=== PATIENT | female | born 1940 | race Caucasian/White ===

== ENCOUNTER 2017-07-07 16:56 | Inpatient (IN) | payer BC, MEDICARE ==
[~2017-07-07] VITALS: Ht 170.2 cm; Wt 78.2 kg
[~2017-07-07 16:56] MED LIST: AMLODIPINE BESYL5 MG PO; ATENOLOL50 MG PO; PREDNISONE20 MG PO
--- OUTSIDE RECORDS SUMMARY | 2017-07-07 17:00 | XMS REPORT | Continuity of Care Document ---
Author Author [facility] Organization [facility] Address [address] [place] [address] Phone Unavailable Care Team Providers Care Fibre Composite Technician Name Role Phone NUSRAT ESPAÑA MD PCP Insurance Providers Guarantor Jayne Conrad Address [address] [place] [address] Email [email or web address] Payer [facility] Policy Number [id number] Subscriber's Name Jayne Conrad Relationship 18 Self / Same As Patient Group Number [id number] [facility] Effective Date 16 Payer Medicare A Only Policy Number [id number] Subscriber's Name Jayne Conrad Relationship 18 Self / Same As Patient Effective Date 07 Advance Directives Directive Response Recorded Date/Time Does the patient have an advance directive? No 01/29/11 8:00pm If yes, is advance directive on file with [facility]? No 06/16/17 7:11pm If not on file with [facility] will patient provide a copy? No 06/16/17 7:11pm Do you have a Directive to Physician? No 06/16/17 5:32pm Do you have a Medical Power of Multimedia Services Coordinator? No 06/16/17 5:32pm Do you have an out of hospital Do Not Resuscitate Order? No 06/16/17 5:32pm Do you have any special needs we should be aware of? No 06/16/17 5:32pm Do you have a support person here with you today? Yes 06/16/17 5:32pm Did patient receive Notice of Privacy Practices? Yes 06/16/17 5:32pm Did patient receive patient rights and responsibilities? Yes 06/16/17 5:32pm Problems Medical Problem Onset Date Status Acute dyspnea Unknown Chest pain Unknown Medications Current Home Medications Medication Dose Units Route Directions Days Qty Instructions Start Date Amlodipine Besylate 5 Mg Tablet 5 Mg Oral Bedtime 30 Tab Atenolol 50 Mg Tablet 25 Mg Oral Bedtime Prednisone 20 Mg Tab 20 Mg Oral Daily 5 Tab Social History Social History Problem Response Recorded Date/Time Onset Date Status Hx Psychiatric Problems No 06/16/2017 7:11pm Not Applicable Not Applicable Hx Eating Disorder No 06/16/2017 7:11pm Not Applicable Not Applicable Hx Substance Use Disorder No 06/16/2017 7:11pm Not Applicable Not Applicable Hx Depression No 06/16/2017 7:11pm Not Applicable Not Applicable Hx Alcohol Use No 06/16/2017 7:11pm Not Applicable Not Applicable Hx Substance Use Treatment No 06/16/2017 7:11pm Not Applicable Not Applicable Hx Physical Abuse No 06/16/2017 7:11pm Not Applicable Not Applicable Smoking Status Start Date Stop Date Never Smoker Hospital Discharge Instructions No hospital discharge instruction information available. Plan of Care Discharge Date 06/20/17 3:26pm Disposition HOME, SELF-CARE Instructions/Education Provided Dyspnea Prescriptions See Medication Section Referrals KULWANT EVANS MD (Pulmonary) Order Date: 5-7 Days Entered Date: 06/20/2017 1:55pm Address: [address] [place] [place] [address] Additional Instructions/Education REGULAR DIET ,ACTIVITY TOLERATED ,FOLLOW UP WITH PCP AFTER ONE WEEK Functional Status Query Response Date Recorded Assistive Devices None June 16, 2017 7:15pm Ambulation Ability Independent June 16, 2017 7:15pm Toileting Ability Independent June 20, 2017 12:46pm Allergies, Adverse Reactions, Alerts Allergen Type Severity Reaction Status Last Updated Levofloxacin Allergy Unknown Active 06/16/17 Immunizations No immunization information available. Vital Signs Acute Vital Signs Vital Response Date/Time Temperature (Fahrenheit) 96.4 degrees F (97.6 - 99.5) 06/20/2017 12:17pm Pulse Pulse Rate (adult) 64 bpm (60 - 90) 06/20/2017 12:17pm Respiratory Rate 18 bpm (12 - 24) 06/20/2017 12:17pm Blood Pressure 140/70 mm Hg 06/20/2017 12:17pm Height 5 ft 7 in 06/16/2017 8:20pm Weight 160 lb 06/20/2017 8:40am Body Mass Index 25.1 kg/m^2 06/20/2017 8:40am Results Laboratory Results Test Name Result Units Flags Reference Collection Date/Time Result Date/ Time Comments White Blood Count 9.80 x10e3/uL 4.8-10.8 06/19/2017 6:05am 06/19/2017 6 :52am Red Blood Count 3.82 x10e6/uL 3.6-5.1 06/19/2017 6:05am 06/19/2017 6: 52am Hemoglobin 11.7 g/dL L 12.0-16.0 06/19/2017 6:05am 06/19/2017 6:52am Hematocrit 34.1 % L 34.2-44.1 06/19/2017 6:05am 06/19/2017 6:52am Mean Corpuscular Volume 89.3 fL 81-99 06/19/2017 6:05am 06/19/2017 6: 52am Mean Corpuscular Hemoglobin 30.6 pg 28-32 06/19/2017 6:05am 06/19/2017 6:52am Mean Corpuscular Hemoglobin Concent 34.3 g/dL 31-35 06/19/2017 6:05am 06/19/2017 6:52am Red Cell Distribution Width 13.2 % 11.7-14.4 06/19/2017 6:05am 2017 6:52am Platelet Count 473 x10e3/uL H 140-360 06/19/2017 6:05am 06/19/2017 6: 52am Neutrophils (%) (Auto) 78.6 % 38.7-80.0 06/19/2017 6:05am 06/19/2017 6: 52am Lymphocytes (%) (Auto) 16.0 % L 18.0-39.1 06/19/2017 6:05am 06/19/2017 6 :52am Monocytes (%) (Auto) 2.7 % L 4.4-11.3 06/19/2017 6:05am 06/19/2017 6: 52am Eosinophils (%) (Auto) 0.0 % 0.0-6.0 06/19/2017 6:05am 06/19/2017 6: 52am Basophils (%) (Auto) 0.1 % 0.0-1.0 06/19/2017 6:05am 06/19/2017 6:52am IM GRANULOCYTES % 2.6 % H 0.0-1.0 06/19/2017 6:05am 06/19/2017 6:52am Neutrophils # (Auto) 7.7 H 2.1-6.9 06/19/2017 6:05am 06/19/2017 6: 52am Lymphocytes # (Auto) 1.6 1.0-3.2 06/19/2017 6:05am 06/19/2017 6:52am Monocytes # (Auto) 0.3 0.2-0.8 06/19/2017 6:05am 06/19/2017 6:52am Eosinophils # (Auto) 0.0 0.0-0.4 06/19/2017 6:05am 06/19/2017 6:52am Basophils # (Auto) 0.0 0.0-0.1 06/19/2017 6:05am 06/19/2017 6:52am Absolute Immature Granulocyte (auto 0.25 x10e3/uL H 0-0.1 06/19/2017 6: 05am 06/19/2017 6:52am Differential Total Cells Counted 100 06/19/2017 6:05am 06/19/2017 12:03pm Neutrophils % (Manual) 71 % 40-74 06/19/2017 6:05am 06/19/2017 12:03pm Band Neutrophils % 6 % 06/19/2017 6:05am 06/19/2017 12:03pm Lymphocytes % (Manual) 18 % L 19-48 06/19/2017 6:05am 06/19/2017 12: 03pm Monocytes % (Manual) 5 % 3.4-9.0 06/19/2017 6:05am 06/19/2017 12:03pm Eosinophils % (Manual) 2 % 0-7 06/16/2017 2:15pm 06/16/2017 6:23pm Platelet Estimate MODERATELY INCREASED 06/19/2017 6:05am 2017 12:03pm Platelet Morphology Comment NORMAL 06/19/2017 6:05am 06/19/2017 12: 03pm Polychromasia FEW 06/16/2017 2:15pm 06/16/2017 6:23pm Red Cell Morphology Comment NORMAL 06/19/2017 6:05am 06/19/2017 12: 03pm Prothrombin Time 13.3 seconds 11.9-14.5 06/16/2017 2:15pm 06/16/2017 3: 01pm Prothromb Time International Ratio 1.09 06/16/2017 2:15pm 2017 3:01pm Oral Anticoagulant Therapy INR Values: 1. Low Intensity Therapy 1.5 - 2.0 2. Moderate Intensity Therapy 2.0 - 3.0 3. High Intensity Therapy(1) 2.5 - 3.5 4. High Intensity Therapy(2) 3.0 - 4.0 5. Panic Value INR > 5.0 D-Dimer Quantitative (PE/DVT) 11.10 ug/mLFEU H 0.00-0.45 06/16/2017 2: 15pm 06/16/2017 3:16pm Urine Color YELLOW YELLOW 06/16/2017 2:35pm 06/16/2017 3:09pm Urine Clarity CLEAR CLEAR 06/16/2017 2:35pm 06/16/2017 3:09pm Urine Specific [place] 1.010 1.010-1.025 06/16/2017 2:35pm 2017 3:09pm Urine pH 6 5 - 7 06/16/2017 2:35pm 06/16/2017 3:09pm Urine Leukocyte Esterase NEGATIVE NEGATIVE 06/16/2017 2:35pm 2017 3:09pm Urine Nitrite NEGATIVE NEGATIVE 06/16/2017 2:35pm 06/16/2017 3:09pm Urine Protein NEGATIVE NEGATIVE 06/16/2017 2:35pm 06/16/2017 3:09pm Urine Glucose (UA) NEGATIVE NEGATIVE 06/16/2017 2:35pm 06/16/2017 3: 09pm Urine Ketones NEGATIVE NEGATIVE 06/16/2017 2:35pm 06/16/2017 3:09pm Urine Urobilinogen 0.2 mg/dL 0.2 - 1 06/16/2017 2:35pm 06/16/2017 3: 09pm Urine Bilirubin NEGATIVE NEGATIVE 06/16/2017 2:35pm 06/16/2017 3: 09pm Urine Blood TRACE H NEGATIVE 06/16/2017 2:35pm 06/16/2017 3:09pm Urine WBC NONE /HPF 0-5 06/16/2017 2:35pm 06/16/2017 3:22pm Urine RBC 6-10 /HPF H 0-5 06/16/2017 2:35pm 06/16/2017 3:22pm Urine Bacteria FEW /HPF NONE 06/16/2017 2:35pm 06/16/2017 3:22pm Urine Epithelial Cells FEW /LPF NONE 06/16/2017 2:35pm 06/16/2017 3: 22pm Urine Amorphous Sediment FEW FEW 06/16/2017 2:35pm 06/16/2017 3:22pm Urine Yeast RARE H NONE 06/16/2017 2:35pm 06/16/2017 3:22pm Sodium Level 135 mmol/L L 136-145 06/19/2017 6:05am 06/19/2017 7:21am Potassium Level 4.0 mmol/L 3.5-5.1 06/19/2017 6:05am 06/19/2017 7:21am Chloride Level 102 mmol/L 98-107 06/19/2017 6:05am 06/19/2017 7:21am Carbon Dioxide Level 22 mmol/L 22-06/19/2017 6:05am 06/19/2017 7: 21am Anion Gap 15.0 mmol/L 8-16 06/19/2017 6:05am 06/19/2017 7:21am Blood Urea Nitrogen 24 mg/dL 706/19/2017 6:05am 06/19/2017 7:21am Creatinine 0.90 mg/dL 0.57-1.11 06/19/2017 6:05am 06/19/2017 7:21am BUN/Creatinine Ratio 27 H 6-06/19/2017 6:0506/19/2017 7:21am Estimat Glomerular Filtration Rate > 60 ML/MIN 60- 06/19/2017 6:05 7:21am Ranges were taken from the National Kidney Disease Education Program and the National Kidney Foundation literature. Reference ranges: 60 or greater: Normal 16-59 (for 3 consecutive months): Chronic kidney disease 15 or less: Kidney failure Glucose Level 118 mg/dL 74-118 06/19/2017 6:05am 06/19/2017 7:21am Calcium Level 8.6 mg/dL 8.4-10.2 06/19/2017 6:05am 06/19/2017 7:21am Magnesium Level 2.1 MG/DL 1.3-2.1 06/18/2017 9:28am 06/18/2017 10:03am Total Bilirubin 0.4 mg/dL 0.2-1.2 06/19/2017 6:05am 06/19/2017 7:21am Aspartate Amino Transf (AST/SGOT) 64 IU/L H 5-34 06/19/2017 6:0506/19 7:21am Alanine Aminotransferase (ALT/SGPT) 108 IU/L H 0-55 06/19/2017 6:05am 7:21am Total Protein 6.3 g/dL L 6.5-8.1 06/19/2017 6:0506/19/2017 7:21am Albumin 2.7 g/dL L 3.5-5.0 06/19/2017 6:0506/19/2017 7:21am Globulin 3.6 g/dL H 2.3-3.5 06/19/2017 6:0506/19/2017 7:21am Albumin/Globulin Ratio 0.8 0.8-2.0 06/19/2017 6:0506/19/2017 7: 21am Alkaline Phosphatase 73 IU/L 40-150 06/19/2017 6:0506/19/2017 7: 21am Triglycerides Level 75 MG/DL 0-149 06/17/2017 6:10am 06/17/2017 7:28am Cholesterol Level 168 MD/DL 0-199 06/17/2017 6:10am 06/17/2017 7:28am Less than 200 mg/dL Low Risk 201 - 239 mg/dL Borderline Risk 240 mg/dl and greater High Risk LDL Cholesterol 105 MG/DL 60-130 06/17/2017 6:10am 06/17/2017 7:28am HDL Cholesterol 48 MG/DL 40-60 06/17/2017 6:10am 06/17/2017 7:28am Cholesterol/HDL Ratio 3.5 3.0-3.6 06/17/2017 6:10am 06/17/2017 7: 28am B-Type Natriuretic Peptide 19.7 pg/mL 0-100 06/16/2017 2:15pm 2017 3:12pm Creatine Kinase 28 IU/L L 29-168 06/17/2017 6:10am 06/17/2017 7:28am Creatine Kinase MB 0.70 ng/mL 0-5.0 06/17/2017 6:10am 06/17/2017 7: 34am Troponin I < 0.001 ng/mL 0-0.300 06/17/2017 6:10am 06/17/2017 7:34am Free Thyroxine 1.49 ng/dL 0.9-1.8 06/16/2017 10:07pm 06/16/2017 11: 03pm Thyroid Stimulating Hormone (TSH) 1.157 uIU/mL 0.350-4.940 06/16/2017 10 :07pm 06/16/2017 11:03pm Anti-Mitochondrial Antibody 4.2 Units 0.0-20.0 06/17/2017 10:13am 06/19 7:26pm Negative 0.0 - 20.0 Equivocal 20.1 - 24.9 Positive >24.9 Mitochondrial (M2) Antibodies are found in 90-96% of patients with primary biliary cirrhosis. Performed at: [address] [id number] Managing Editor: Eddy Borja MD, Phone: [phone] Performed at: [address] [id number] Managing Editor: Faustino Spivey MD, Phone: [phone] Anti-Nuclear Antibody Screen Negative . 06/17/2017 10:13am 2017 2:08pm Negative <1:80 Borderline 1:80 Positive >1:80 Performed at: [facility] [address] [id number] Managing Editor: Eddy Borja MD, Phone: [phone] Gamma Glutamyl Transpeptidase 68 IU/L H 0-60 06/17/2017 10:13am 2017 7:44am Performed at: [address] [id number] Managing Editor: Eddy Borja MD, Phone: [phone] C-Reactive Protein 105.7 mg/L H 0.0-4.9 06/17/2017 10:13am 06/18/2017 2: 09pm Performed at: [address] [id number] Managing Editor: Eddy Borja MD, Phone: [phone] Luly-Fuchs Virus IgM Antibody <36.0 U/mL 0.0-35.9 06/17/2017 10:13am 06/19/2017 7:26pm Negative <36.0 Equivocal 36.0 - 43.9 Positive >43.9 Luly-Fuchs Early Antigen IgG Ab 35.2 U/mL H 0.0-8.9 06/17/2017 10:13am 06/19/2017 7:26pm Hepatitis A, Hepatitis C and HIV antibodies may cross-react with this assay. Negative < 9.0 Equivocal 9.0 - 10.9 Positive >10.9 Luly-Fuchs Virus IgG Antibody 86.3 U/mL H 0.0-17.9 06/17/2017 10:13am 06/19/2017 7:26pm Negative <18.0 Equivocal 18.0 - 21.9 Positive >21.9 Luly-Fuchs Nuclear Assoc Ag IgG 18.6 U/mL H 0.0-17.9 06/17/2017 10: 13am 06/19/2017 7:26pm A second sample should be collected and tested no less than 2-4 weeks. Negative <18.0 Equivocal 18.0 - 21.9 Positive >21.9 Luly-Fuchs Virus Interpretation Comment . 06/17/2017 10:13am 2017 7:26pm EBV Interpretation Chart Interpretation EBV-IgM EA(D)-IgG VCA-IgG EBNA-IgG EBV Seronegative - - - - Early Phase + - - - Acute Primary + +or- + - Infection Convalescence/Past - +or- + + Infection Reactivated +or- + + + Infection + Antibody Present - Antibody Absent Procedures Procedure Status Date Provider(s) Computed tomography of chest without contrast Active 06/16/17 KULWANT EVANS MD gallbladder Active 06/17/17 KULWANT EVANS MD Encounters Encounter Location Arrival/Admit Date Discharge/Depart Date Attending Provider Admitted Inpatient [facility] 06/16/17 5:34pm NUSRAT ESPAÑA MD
[2017-07-07 18:23] LABS: BASOPHILS % 0.3 % (0.0-1.0); EOSINOPHILS % 0.3 % (0.0-6.0); HEMATOCRIT 36.4 % (34.2-44.1); HEMOGLOBIN 12.2 g/dL (12.0-16.0); LYMPHOCYTES # (AUTO) 1.5 (1.0-3.2); MEAN CORPUSCULAR HEMOGLOBIN 30.7 pg (28-32); MEAN CORPUSCULAR HGB CONC 33.5 g/dL (31-35); MEAN CORPUSCULAR VOLUME 91.7 fL (81-99); MONOCYTES # (AUTO) 0.5 (0.2-0.8); MONOCYTES % 5.7 % (4.4-11.3); NEUTROPHILS # (AUTO) 6.5 (2.1-6.9); NEUTROPHILS % 72.7 % (38.7-80.0); PLATELET COUNT 234 x10e3/uL (140-360); RED BLOOD COUNT 3.97 x10e6/uL (3.6-5.1); RED CELL DISTRIBUTION WIDTH 14.5 % (11.7-14.4)
[2017-07-07 18:23] LABS: BILIRUBIN,URINE NEGATIVE (NEGATIVE); COLOR,URINE YELLOW (YELLOW); KETONES,URINE NEGATIVE (NEGATIVE); LEUKOCYTE ESTERASE ,URINE NEGATIVE (NEGATIVE); NITRITE,URINE NEGATIVE (NEGATIVE); PROTEIN,URINE DIPSTICK NEGATIVE (NEGATIVE); URINE UROBILINOGEN 0.2 mg/dL (0.2 - 1)
[2017-07-07] MEDS ORDERED: ONDANSETRON HCL INJ 2 MG/ML VIAL IV STA (18:25)
[2017-07-07 18:28] LABS: CLARITY,URINE SL CLOUDY (CLEAR)
[2017-07-07] MEDS ORDERED: ACETAMINOPHEN 325 MG TAB PO ONE ×2 (18:30)
[2017-07-07 18:32] LABS: INR 0.98; PROTHROMBIN TIME 12.2 seconds (11.9-14.5)
[2017-07-07 18:34] LABS: PARTIAL THROMBOPLASTIN TIME 21.5 seconds (23.8-35.5)
[2017-07-07 18:39] LABS: ALBUMIN/GLOBULIN RATIO 0.9 (0.8-2.0); ANION GAP 17.9 mmol/L (8-16); CALCIUM 8.7 mg/dL (8.4-10.2); CREATININE, SERUM 0.99 mg/dL (0.57-1.11); POTASSIUM 3.9 mmol/L (3.5-5.1)
[2017-07-07 18:45] LABS: EPITHELIAL CELLS,URINE MODERATE /LPF; RBC,URINE 0-5 /HPF (0-5); WBC,URINE (MAN) 0-5 /HPF (0-5)
[2017-07-07 18:48] LABS: CREATINE KINASE MB 0.6 ng/mL (0-5.0)
[2017-07-07] MEDS ORDERED: MORPHINE SULFATE 2 MG/ML SYR IV STA (18:52)
[2017-07-07 19:17] LABS: HYPOCHROMASIA SLIGHT; LYMPHOCYTES % (MANUAL) 16 % (19-48); MONOCYTES % (MANUAL) 7 % (3.4-9.0); NEUTROPHILS % (MANUAL) 74 % (40-74); PLATELET ESTIMATE ADEQUATE; PLATELET MORPHOLOGY COMMENT NORMAL; RBC MORPHOLOGY COMMENT NORMAL
[2017-07-07] MEDS ORDERED: SODIUM CHLORIDE 0.9% 1000ML 1,000 ML IV SCH (19:45)
[2017-07-07] MEDS: SODIUM CHLORIDE 0.9% 1000ML 1,000 ML IV SCH (19:50)
--- NOTE | 2017-07-07 21:26 | Diagnostic Imaging Report ---
EXAM: CT ABDOMEN AND PELVIS without IV CONTRAST INDICATION: Lower abdominal pain, nausea and vomiting for 3 days COMPARISON: None TECHNIQUE: The abdomen and pelvis were scanned using a multidetector helical scanner. Coronal and sagittal reformations were obtained. Routine protocol performed. IV Contrast: None Oral Contrast: None CTDIvol has been reviewed. It is below the limits set by the Radiation Protocol Committee (RPC). FINDINGS: LOWER THORAX: No consolidations LIVER: No masses BILIARY: Normal gallbladder. No ductal dilation. SPLEEN: No masses PANCREAS: No masses ADRENALS: No nodules RIGHT KIDNEY: No nephroureterolithiasis or hydronephrosis. LEFT KIDNEY: No nephroureterolithiasis or hydronephrosis. GI TRACT: No wall thickening or obstruction. Small hiatal hernia. Sigmoid colon diverticulosis without findings of diverticulitis. No evidence of appendicitis. VESSELS: Mild to moderate atherosclerotic changes of the abdominal aorta without aneurysm. PERITONEUM/RETROPERITONEUM: No free air or fluid LYMPH NODES: No lymphadenopathy REPRODUCTIVE ORGANS: The uterus and ovaries are not visualized. BLADDER: Normal SOFT TISSUES: Normal BONES: No suspicious bone lesions. IMPRESSION: No CT findings to explain patient's symptoms. Signed by: Dr. Rosa Tobar M.D. on 07/07/2017 9:23 PM
--- NOTE | 2017-07-07 21:32 | Diagnostic Imaging Report ---
EXAM: CHEST 2 VIEWS, PA and lateral INDICATION: Cough COMPARISON: None FINDINGS: LINES/TUBES: None LUNGS: No consolidations or edema. PLEURA: No effusions or pneumothorax. Eventration of the right hemidiaphragm. HEART AND MEDIASTINUM: Normal size and contour. BONES AND SOFT TISSUES: No acute findings. Mild chronic wedging of mid thoracic spine vertebral bodies. IMPRESSION: No evidence of pneumonia. Signed by: Dr. Rosa Tobar M.D. on 07/07/2017 9:29 PM
[2017-07-07] MEDS: METRONIDAZOLE 500MG/NS 100ML 100 ML IV SCH (23:10)
[2017-07-07 23:35] VITALS: BP 112/56
[2017-07-07] MEDS: CEFOXITIN SOD 1 GM VIAL IV SCH (23:44)
[2017-07-08] VITALS (7 sets, daily range): BP systolic 103–155; BP diastolic 56–74
[2017-07-08] MEDS ORDERED: CEFOXITIN SOD 1 GM in WATER STERILE 10ML VIAL 10 ML IV SCH ×2
[2017-07-08] MEDS: MORPHINE SULFATE 2 MG/ML SYR IV PRN ×2 (00:35→04:11)
[2017-07-08] MEDS: ONDANSETRON HCL INJ 2 MG/ML VIAL IV PRN ×5 (00:35→22:00)
[2017-07-08] MEDS: SODIUM CHLORIDE 0.9% 1000ML 1,000 ML IV SCH ×3 (04:12→19:15)
[2017-07-08] MEDS: METRONIDAZOLE 500MG/NS 100ML 100 ML IV SCH ×3 (05:27→21:55)
[2017-07-08] MEDS: CEFOXITIN SOD 1 GM VIAL IV SCH ×4 (05:27→23:30)
[2017-07-08] MEDS: ACETAMINOPHEN 325 MG TAB PO PRN ×3 (05:57→21:48)
[2017-07-08 06:50] LABS: BASOPHILS % 0.4 % (0.0-1.0); EOSINOPHILS # (AUTO) 0.1 (0.0-0.4); EOSINOPHILS % 0.8 % (0.0-6.0); HEMATOCRIT 32.7 % (34.2-44.1); HEMOGLOBIN 10.9 g/dL (12.0-16.0); LYMPHOCYTES # (AUTO) 1.2 (1.0-3.2); LYMPHOCYTES % 15.5 % (18.0-39.1); MEAN CORPUSCULAR HGB CONC 33.3 g/dL (31-35); MEAN CORPUSCULAR VOLUME 92.9 fL (81-99); MONOCYTES # (AUTO) 0.4 (0.2-0.8); MONOCYTES % 4.7 % (4.4-11.3); NEUTROPHILS # (AUTO) 5.9 (2.1-6.9); NEUTROPHILS % 73.8 % (38.7-80.0); PLATELET COUNT 192 x10e3/uL (140-360); RED BLOOD COUNT 3.52 x10e6/uL (3.6-5.1); RED CELL DISTRIBUTION WIDTH 14.7 % (11.7-14.4)
[2017-07-08 07:22] LABS: ALBUMIN 2.6 g/dL (3.5-5.0); ALBUMIN/GLOBULIN RATIO 0.9 (0.8-2.0); ANION GAP 11.6 mmol/L (8-16); CALCIUM 8.2 mg/dL (8.4-10.2); CREATININE, SERUM 1.14 mg/dL (0.57-1.11); POTASSIUM 3.6 mmol/L (3.5-5.1)
[2017-07-08 08:21] LABS: BAND NEUTROPHILS % (MANUAL) 4 %; LYMPHOCYTES % (MANUAL) 12 % (19-48); MONOCYTES % (MANUAL) 5 % (3.4-9.0); NEUTROPHILS % (MANUAL) 79 % (40-74); PLATELET ESTIMATE ADEQUATE; PLATELET MORPHOLOGY COMMENT NORMAL; RBC MORPHOLOGY COMMENT NORMAL
--- NOTE | 2017-07-08 13:53 | Consultation ---
DATE OF CONSULTATION: PULMONARY CONSULTATION REASON FOR CONSULTATION: Fever of unknown origin. Patient reports that she has no energy. HPI: Ms. Conrad is a 77-year-old female, and she has a concern. She said that she has fevers at home and she has no energy. She denies any chest pain, nausea, vomiting, diarrhea, abdominal pain, focal weakness. Temperature has been 101 here and 101.9. No etiology has been identified. She had similar complaints last visit when she was here in the beginning of June. She reports that she never felt better since she went home. She has been getting Rocephin shot by Dr. Alba per his note. She denies any nausea, vomiting, diarrhea or focal weakness, generally feels drained. REVIEW OF SYSTEMS GENERAL: Fever, chills. HEAD: Denies any head trauma. ENT: Denies any earache, nosebleed, throat pain. CVS: Denies any chest pain. RESPIRATORY: No shortness of breath. GI: Denies any nausea, vomiting, diarrhea. OTHER: Rest of the review of systems are negative except as in HPI. PAST MEDICAL HISTORY: Hypertension. PAST SURGICAL HISTORY: Cataract. FAMILY AND SOCIAL HISTORY: She works in a library. She does not smoke and does not drink. PHYSICAL EXAMINATION VITAL SIGNS: Temperature 97, pulse 78, blood pressure 103/59, respiratory rate of 18. T-max of 101. SKIN: Warm and dry. HEENT: Head is atraumatic, normocephalic. Pupils are reactive. NECK: Supple. CHEST: Clear to auscultation bilaterally. HEART: S1, S2 audible. ABDOMEN: Soft. EXTREMITIES: No clubbing, cyanosis or edema. LABS: Within normal limits. Creatinine is mildly elevated to 1.14. She underwent a CT chest during last visit which did not show any acute findings. She underwent ultrasound of the abdomen and pelvis. She underwent gallbladder ultrasound, which showed positive Carreon sign but nothing to suggest cholecystitis. She underwent CT abdomen and pelvis on the with no CT findings. Chest x-ray is also normal. ASSESSMENT AND PLAN: Ms. Conrad is a 77-year-old female with fever of unknown origin. Extensive workup has been negative. Last time, the viral serology was positive, but that does not explain chronic fever. NISHI is negative. Antimitochondrial antibody was also within normal limits. PLAN: ID consult has been called. I am unsure of the etiology of the fever. Continue supportive treatment. Will follow along with you. Will discuss with Dr. Alba and Dr. Wild. Job#: [id number]
[2017-07-08 14:40] LABS: FREE THYROXINE INDEX 2.8291 (1.4-3.8); THYROID STIMULATING HORMONE 2.202 uIU/mL (0.350-4.940)
[2017-07-08] MEDS: BENZONATATE 100 MG CAP PO PRN (14:44)
[2017-07-08] MEDS: KETOROLAC TROMETHAMINE 30 MG/ML VIAL IM PRN (14:44)
[2017-07-08] MEDS ORDERED: SIMETHICONE 80 MG CHEW PO PRN (16:00)
--- NOTE | 2017-07-08 17:06 | Consultation ---
DATE OF CONSULTATION: REASON FOR CONSULTATION: Fever. Thank you so much for asking me to see this patient. HISTORY OF PRESENT ILLNESS: This patient is a very pleasant, 77-year-old white female. She is telling me for the last 6 weeks or so she has been having fever and chills, not feeling well. She was recently in the hospital. She was here on June 16 with shortness of breath and weakness. The patient apparently has been sick and getting progressively worse for a few weeks. In general, she does have history of hypertension and history of cataract surgery. She was discharged home but she is coming back again with fever, chills, not feeling well in general and very weak. No other specific complaint, maybe some shortness of breath, maybe some dry cough. She is saying that is about it. PAST MEDICAL HISTORY: Hypertension. PAST SURGICAL HISTORY: Cataract surgery. ALLERGIES: SOCIAL HISTORY: There is no smoking, drug abuse, alcohol abuse. FAMILY HISTORY: Otherwise unremarkable. REVIEW OF SYSTEMS: Besides what is mentioned above, there is no joint pain, no visual changes or hearing changes. There is some headache. There has been no shortness of breath with dyspnea on exertion. No urgency, no frequency. No skin rash. No other problems. All other systems within normal limits. LABS: White count 7.9, hemoglobin 10.9, hematocrit 32. Sodium 129, potassium 3.6, creatinine 1.14. It was 0.99 yesterday. Glucose was within normal limits. Liver enzymes are within normal limits. Blood cultures are negative. She had a CT of the abdomen and pelvis which showed no acute CT findings in the abdomen and pelvis. She had a chest x-ray that showed no evidence of pneumonia. PHYSICAL EXAMINATION GENERAL: She is currently alert and oriented, does not seem to be in acute distress. VITALS: She is running a fever of 101. HEENT: She is not icteric. NECK: Supple. CHEST: Clear. COR: No murmur. ABDOMEN: Soft. Bowel sounds present. EXTREMITIES: No edema. IMPRESSION: Fever for a few weeks. Generalized feeling of not feeling well. She is currently on Mefoxin and metronidazole. CT scan is negative. Chest x-ray is negative. Blood cultures negative. I would recommend to obtain a sed rate and C-reactive protein to rule out polymyalgia rheumatica. Obtain collagen workup to rule out lupus or rheumatoid arthritis. TSH to rule out hyperparathyroidism. Amylase, lipase and liver enzymes. Continue with antibiotic until we get the blood cultures. Will get lactic acid level and procalcitonin. Will follow with you. BLADE DAVIS MD Job#: [id number]
[2017-07-08] MEDS: AMLODIPINE BESYLATE 5 MG TAB PO SCH (21:49)
[2017-07-08] MEDS: ATENOLOL 50 MG TAB PO SCH (21:49)
[2017-07-08] MEDS ORDERED: BISACODYL 5 MG TAB EC PO PRN (22:15)
[2017-07-09] VITALS: BP 119/66
[2017-07-09] MEDS: BENZONATATE 100 MG CAP PO PRN ×2 (00:17→12:21)
[2017-07-09] MEDS: ACETAMINOPHEN 325 MG TAB PO PRN ×2 (01:48→21:05)
[2017-07-09] MEDS: KETOROLAC TROMETHAMINE 30 MG/ML VIAL IM PRN ×2 (01:48→12:21)
[2017-07-09 04:00] VITALS: BP 102/67
[2017-07-09] MEDS: SODIUM CHLORIDE 0.9% 1000ML 1,000 ML IV SCH ×3 (05:14→19:50)
[2017-07-09] MEDS: METRONIDAZOLE 500MG/NS 100ML 100 ML IV SCH ×3 (05:14→21:44)
[2017-07-09] MEDS: CEFOXITIN SOD 1 GM VIAL IV SCH ×4 (06:13→23:38)
[2017-07-09 07:19] LABS: BASOPHILS % 0.3 % (0.0-1.0); EOSINOPHILS # (AUTO) 0.1 (0.0-0.4); EOSINOPHILS % 0.8 % (0.0-6.0); HEMATOCRIT 31.6 % (34.2-44.1); HEMOGLOBIN 10.3 g/dL (12.0-16.0); LYMPHOCYTES # (AUTO) 1.1 (1.0-3.2); LYMPHOCYTES % 16.7 % (18.0-39.1); MEAN CORPUSCULAR HEMOGLOBIN 30.6 pg (28-32); MEAN CORPUSCULAR HGB CONC 32.6 g/dL (31-35); MEAN CORPUSCULAR VOLUME 93.8 fL (81-99); MONOCYTES # (AUTO) 0.2 (0.2-0.8); MONOCYTES % 3.2 % (4.4-11.3); NEUTROPHILS # (AUTO) 4.8 (2.1-6.9); NEUTROPHILS % 73.6 % (38.7-80.0); PLATELET COUNT 205 x10e3/uL (140-360); RED BLOOD COUNT 3.37 x10e6/uL (3.6-5.1); RED CELL DISTRIBUTION WIDTH 14.6 % (11.7-14.4)
[2017-07-09 07:48] VITALS: BP 102/58
[2017-07-09 07:50] LABS: ALBUMIN 2.3 g/dL (3.5-5.0); ALBUMIN/GLOBULIN RATIO 0.7 (0.8-2.0); ANION GAP 12.1 mmol/L (8-16); CALCIUM 8.1 mg/dL (8.4-10.2); CREATININE, SERUM 1.07 mg/dL (0.57-1.11); POTASSIUM 4.1 mmol/L (3.5-5.1)
[2017-07-09 09:20] VITALS: BP 102/58
[2017-07-09] MEDS: ONDANSETRON HCL INJ 2 MG/ML VIAL IV PRN (12:21)
[2017-07-09] MEDS: ALBUTEROL/IPRATROPIUM 3 ML NEB NEB SCH ×2 (19:00→23:45)
[2017-07-09] MEDS: BUDESONIDE 0.5MG/2 ML NEB INH SCH (19:00)
[2017-07-09] MEDS: AMLODIPINE BESYLATE 5 MG TAB PO SCH (21:04)
[2017-07-09] MEDS: ATENOLOL 50 MG TAB PO SCH (21:05)
[2017-07-10] VITALS: BP 121/59
[2017-07-10] MEDS: ACETAMINOPHEN 325 MG TAB PO PRN (03:00)
[2017-07-10] MEDS: BENZONATATE 100 MG CAP PO PRN (03:42)
[2017-07-10 04:05] VITALS: BP 141/80
[2017-07-10] MEDS: METRONIDAZOLE 500MG/NS 100ML 100 ML IV SCH ×3 (05:39→21:35)
[2017-07-10] MEDS: CEFOXITIN SOD 1 GM VIAL IV SCH ×3 (05:39→17:10)
[2017-07-10] MEDS: BUDESONIDE 0.5MG/2 ML NEB INH SCH ×2 (07:00→19:15)
[2017-07-10] MEDS: ALBUTEROL/IPRATROPIUM 3 ML NEB NEB SCH ×2 (07:00→19:15)
[2017-07-10 07:50] VITALS: BP 139/67
--- NOTE | 2017-07-10 08:58 | Diagnostic Imaging Report ---
Examination: MRI BRAIN WITHOUT CONTRAST History: Weakness. Fevers. Comparison studies: None Technique: Sagittal T2; axial DWI, FLAIR, GRE or SWI, T1, Coronal FLAIR. Intravenous contrast: None Findings: Scalp: No abnormal signal. No masses. Bone marrow: Normal in signal intensity. Brain volume: Adequate for age. No volume loss. Ventricles: No hydrocephalus. Extra-axial spaces: No abnormalities. Parenchyma: There are patchy and confluent areas of T2/FLAIR hyperintensity in the periventricular and subcortical and pontine white matter, nonspecific. No masses, hemorrhage, or acute vascular insults. Suprasellar and sellar region: No abnormalities. Craniocervical junction: No abnormalities. The foramen magnum is patent. No Chiari malformations. Vessels: Normal flow-voids in the arteries and sinuses. Additional findings:Partial opacification of the left mastoid air cells IMPRESSION: 1. No acute intracranial abnormalities. 2. Mild chronic microvascular ischemic change. Signed by: Dr. Annabelle Pandey M.D. on 07/10/2017 8:54 AM
[2017-07-10 09:28] LABS: BASOPHILS % 0.4 % (0.0-1.0); EOSINOPHILS # (AUTO) 0.1 (0.0-0.4); EOSINOPHILS % 1.7 % (0.0-6.0); HEMATOCRIT 31.1 % (34.2-44.1); HEMOGLOBIN 10.4 g/dL (12.0-16.0); LYMPHOCYTES # (AUTO) 1.1 (1.0-3.2); LYMPHOCYTES % 19.9 % (18.0-39.1); MEAN CORPUSCULAR HEMOGLOBIN 30.6 pg (28-32); MEAN CORPUSCULAR HGB CONC 33.4 g/dL (31-35); MEAN CORPUSCULAR VOLUME 91.5 fL (81-99); MONOCYTES # (AUTO) 0.3 (0.2-0.8); NEUTROPHILS # (AUTO) 3.7 (2.1-6.9); NEUTROPHILS % 67.3 % (38.7-80.0); PLATELET COUNT 202 x10e3/uL (140-360); RED CELL DISTRIBUTION WIDTH 14.6 % (11.7-14.4)
[2017-07-10 09:29] VITALS: BP 139/67
[2017-07-10 09:53] LABS: ALANINE AMINOTRANSFERASE 88 IU/L (0-55); ALBUMIN 2.3 g/dL (3.5-5.0); ALBUMIN/GLOBULIN RATIO 0.8 (0.8-2.0); ALKALINE PHOSPHATASE 59 IU/L (40-150); ANION GAP 13.4 mmol/L (8-16); BLOOD UREA NITROGEN 6 mg/dL (7-26); BUN/CREATININE RATIO 7 (6-25); CARBON DIOXIDE 19 mmol/L (22-29); CHLORIDE 108 mmol/L (98-107); CREATININE, SERUM 0.85 mg/dL (0.57-1.11); EST GLOMERULAR FILTRATION RATE > 60 ML/MIN (60-); GLUCOSE 125 mg/dL (74-118); POTASSIUM 3.4 mmol/L (3.5-5.1); SODIUM 137 mmol/L (136-145)
[2017-07-10 10:49] LABS: BAND NEUTROPHILS % (MANUAL) 14 %; LYMPHOCYTES % (MANUAL) 22 % (19-48); MONOCYTES % (MANUAL) 6 % (3.4-9.0); NEUTROPHILS % (MANUAL) 58 % (40-74); PLATELET ESTIMATE ADEQUATE; PLATELET MORPHOLOGY COMMENT NORMAL; RBC MORPHOLOGY COMMENT NORMAL
[2017-07-10] MEDS: ONDANSETRON HCL INJ 2 MG/ML VIAL IV PRN ×3 (10:59→22:04)
[2017-07-10] MEDS: SODIUM CHLORIDE 0.9% 1000ML 1,000 ML IV SCH ×2 (12:00→22:10)
[2017-07-10] MEDS ORDERED: OXYMETAZOLINE HCL 0.05% NAS 1 SPRAY BTL PRN (13:15)
[2017-07-10 19:20] VITALS: BP 144/65
[2017-07-10] MEDS: ATENOLOL 50 MG TAB PO SCH (20:36)
[2017-07-10] MEDS: AMLODIPINE BESYLATE 5 MG TAB PO SCH (20:36)
[2017-07-11] VITALS (8 sets, daily range): BP systolic 127–136; BP diastolic 60–84
[2017-07-11] MEDS: CEFOXITIN SOD 1 GM VIAL IV SCH ×2 (00:10→05:43)
[2017-07-11] MEDS: ALBUTEROL/IPRATROPIUM 3 ML NEB NEB SCH ×4 (01:05→19:35)
[2017-07-11] MEDS: METRONIDAZOLE 500MG/NS 100ML 100 ML IV SCH ×3 (05:43→21:22)
[2017-07-11] MEDS: TRAMADOL HCL 50 MG TAB PO PRN (05:49)
[2017-07-11] MEDS: BUDESONIDE 0.5MG/2 ML NEB INH SCH ×2 (07:00→19:35)
[2017-07-11] MEDS: SODIUM CHLORIDE 0.9% 1000ML 1,000 ML IV SCH ×3 (07:39→21:22)
[2017-07-11 12:19] LABS: FREE T4 (FREE THYROXINE) 1.39 ng/dL (0.9-1.8); THYROID STIMULATING HORMONE 1.884 uIU/mL (0.350-4.940)
[2017-07-11 12:20] LABS: HIV 1&2 AB SCREEN NON-REACTIVE (NONREACTIVE)
[2017-07-11] MEDS: AMLODIPINE BESYLATE 5 MG TAB PO SCH (21:23)
[2017-07-11] MEDS: ONDANSETRON HCL INJ 2 MG/ML VIAL IV PRN (21:23)
[2017-07-11] MEDS: ATENOLOL 50 MG TAB PO SCH (21:23)
[2017-07-12] VITALS (7 sets, daily range): BP systolic 120–152; BP diastolic 56–75
--- NOTE | 2017-07-12 00:08 | Consultation ---
DATE OF CONSULTATION: July 11, 2017 HPI: This is a 77-year-old who presented to the hospital apparently with complaints of abdominal pain, nausea, vomiting, and diarrhea along with some fever. She apparently has intermittent constipation and diarrhea and has some occasional rectal bleeding. She said she had a colonoscopy over 5 years ago which was supposed to be normal. Her workup so far revealed she is mildly anemic with hemoglobin around 10.4 along with liver enzymes are mildly elevated with AST of 75 and ALT of 78 on admission. Her C-reactive protein is also elevated, 89. She has stool test apparently but result is still pending. She had a CAT scan of the abdomen and pelvis several days ago done without contrast which was unremarkable. She also had an MRI of the brain which showed mild chronic microvascular ischemic changes. OTHER MEDICAL PROBLEMS: Significant for history of hypertension. ALLERGIES: NONE. SOCIAL HISTORY: Works in a [employer]. Does not smoke or drink. FAMILY HISTORY: Noncontributory. REVIEW OF SYSTEMS: Denies any chest pain or shortness of breath. Denies any dysphagia or odynophagia. Denies any dysuria or hematuria or any kind of syncopal episode. PHYSICAL EXAMINATION GENERAL: The patient is awake, alert, appears to be stable and not in any acute distress at this point. VITAL SIGNS: Afebrile currently. HEAD, EYES, EARS, NOSE, AND THROAT: Normocephalic, atraumatic. Sclerae are anicteric. NECK: Supple. HEART: Sounds regular. LUNGS: Clear. ABDOMEN: Soft. There is no distention at this point. It is nontender. EXTREMITIES: No edema or clubbing. LAB VALUES Yesterday, WBC of 5.4, hemoglobin of 10.4, hematocrit of 31. CRP was 89. Lot of serology is still pending. IMPRESSIONS 1. Abdominal pain, nausea, vomiting, diarrhea. possibility of gastroenteritis. 2. Fever, workup is in progress. 3. Hypertension. RECOMMENDATIONS: Continue on current care at this point. Await stool study. Will consider endoscopies if stool study is negative and symptoms persist. Job#: [id number] CF cc:NUSRAT ESPAÑA MD
[2017-07-12] MEDS: ALBUTEROL/IPRATROPIUM 3 ML NEB NEB SCH (01:07)
[2017-07-12] MEDS: SODIUM CHLORIDE 0.9% 1000ML 1,000 ML IV SCH ×3 (04:37→20:09)
[2017-07-12] MEDS: METRONIDAZOLE 500MG/NS 100ML 100 ML IV SCH (05:31)
[2017-07-12] MEDS: BENZONATATE 100 MG CAP PO PRN (06:11)
[2017-07-12] MEDS ORDERED: ALBUTEROL/IPRATROPIUM 3 ML NEB NEB PRN (06:15)
[2017-07-12] MEDS: BUDESONIDE 0.5MG/2 ML NEB INH SCH ×2 (06:53→19:00)
[2017-07-12] MEDS: TRAMADOL HCL 50 MG TAB PO PRN (07:25)
[2017-07-12] MEDS: ONDANSETRON HCL INJ 2 MG/ML VIAL IV PRN ×2 (07:44→16:10)
[2017-07-12] MEDS: AMLODIPINE BESYLATE 5 MG TAB PO SCH (20:34)
[2017-07-12] MEDS: ATENOLOL 50 MG TAB PO SCH (20:34)
[2017-07-13] VITALS (9 sets, daily range): BP systolic 115–132; BP diastolic 58–84
[2017-07-13] MEDS: SODIUM CHLORIDE 0.9% 1000ML 1,000 ML IV SCH ×3 (04:04→19:12)
[2017-07-13 06:24] LABS: BASOPHILS % 0.5 % (0.0-1.0); EOSINOPHILS # (AUTO) 0.2 (0.0-0.4); EOSINOPHILS % 2.9 % (0.0-6.0); HEMATOCRIT 30.6 % (34.2-44.1); HEMOGLOBIN 10.5 g/dL (12.0-16.0); LYMPHOCYTES # (AUTO) 1.3 (1.0-3.2); LYMPHOCYTES % 20.4 % (18.0-39.1); MEAN CORPUSCULAR HEMOGLOBIN 30.4 pg (28-32); MEAN CORPUSCULAR HGB CONC 34.3 g/dL (31-35); MEAN CORPUSCULAR VOLUME 88.7 fL (81-99); MONOCYTES # (AUTO) 0.3 (0.2-0.8); MONOCYTES % 5.3 % (4.4-11.3); NEUTROPHILS % 64.9 % (38.7-80.0); PLATELET COUNT 245 x10e3/uL (140-360); RED BLOOD COUNT 3.45 x10e6/uL (3.6-5.1); RED CELL DISTRIBUTION WIDTH 14.6 % (11.7-14.4)
[2017-07-13] MEDS: BUDESONIDE 0.5MG/2 ML NEB INH SCH ×2 (07:00→19:00)
[2017-07-13 07:10] LABS: ALANINE AMINOTRANSFERASE 159 IU/L (0-55); ALBUMIN 2.3 g/dL (3.5-5.0); ALBUMIN/GLOBULIN RATIO 0.8 (0.8-2.0); ALKALINE PHOSPHATASE 58 IU/L (40-150); ANION GAP 15.7 mmol/L (8-16); BLOOD UREA NITROGEN < 5 mg/dL (7-26); CALCIUM 7.8 mg/dL (8.4-10.2); CARBON DIOXIDE 18 mmol/L (22-29); CHLORIDE 103 mmol/L (98-107); CREATININE, SERUM 0.72 mg/dL (0.57-1.11); EST GLOMERULAR FILTRATION RATE > 60 ML/MIN (60-); GLUCOSE 75 mg/dL (74-118); SODIUM 134 mmol/L (136-145)
[2017-07-13 07:11] LABS: BUN/CREATININE RATIO 7 (6-25)
[2017-07-13 07:12] LABS: POTASSIUM 2.7 mmol/L (3.5-5.1)
[2017-07-13] MEDS ORDERED: POTASSIUM CHLORIDE 20MEQ/100ML 200 ML IV STA (07:26)
[2017-07-13 10:07] LABS: BAND NEUTROPHILS % (MANUAL) 3 %; EOSINOPHILS % (MANUAL) 2 % (0-7); LYMPHOCYTES % (MANUAL) 24 % (19-48); METAMYELOCYTES % (MANUAL) 1 % (0-0); MONOCYTES % (MANUAL) 4 % (3.4-9.0); MYELOCYTES % (MANUAL) 1 % (0-0); NEUTROPHILS % (MANUAL) 64 % (40-74)
[2017-07-13 10:08] LABS: ANISOCYTOSIS SLIGHT; HYPOCHROMASIA SLIGHT; PLATELET ESTIMATE ADEQUATE; PLATELET MORPHOLOGY COMMENT NORMAL; RBC MORPHOLOGY COMMENT NORMAL
[2017-07-13] MEDS: SUCRALFATE 1 GM TAB PO SCH ×2 (17:32→21:03)
[2017-07-13] MEDS ORDERED: PROPOFOL IV EMULSION 10 MG/ML 20 ML VIAL ONE (17:45)
[2017-07-13] MEDS ORDERED: LIDOCAINE HCL 2% LOCAL INJ 5 ML SDV VIAL INJ ONE (17:45)
--- NOTE | 2017-07-13 17:52 | Progress Note ---
DATE: INFECTIOUS DISEASE PROGRESS NOTE SUBJECTIVE: Ms. Conrad continues to have a sensation of not feeling well, but there is really no specific complaint. She still has a low fever on and off. Her laboratory data reviewed. PHYSICAL EXAMINATION GENERAL: She is currently alert, oriented, does not seem to be in acute distress. VITAL SIGNS: Stable. She is still running on and off low fever. HEENT: She does not appear icteric. NECK: Supple. CHEST: Clear. HEART: S1 and S2. No S3 or S4, no murmur. ABDOMEN: Soft. Obese. No tenderness. No hepatosplenomegaly. EXTREMITIES: No edema. SKIN: No rash. LAB: White count 6.17, hemoglobin of 10, her platelet of 245. Sed rate of 33. Her metamyelocyte and monocyte are elevated at 1. Rheumatoid factor 12.5. NISHI is negative. HIV is negative. Her liver enzymes slightly high at 141 today and 159. Blood cultures remain negative. Her MRI has been negative. Her CAT scan of abdomen and pelvis shows there is no acute finding. IMPRESSION 1. Low fever. 2. Generalized feeling of not feeling well. 3. Elevated liver enzymes. Will obtain ultrasound of the liver. Obtain HIDA scan. We are still waiting on serology. Obtain a Doppler to rule out DVT. Check amylase, lipase. Will follow. Job#: [id number] MARIE
[2017-07-13 18:14] LABS: ALBUMIN 2.6 g/dL (3.5-5.0); BILIRUBIN,DIRECT 0.5 mg/dL (0.0-0.5)
[2017-07-13] MEDS: AMLODIPINE BESYLATE 5 MG TAB PO SCH (21:03)
[2017-07-13] MEDS: ATENOLOL 50 MG TAB PO SCH (21:03)
[2017-07-14] VITALS (8 sets, daily range): BP systolic 108–138; BP diastolic 56–88
[2017-07-14] MEDS: BENZONATATE 100 MG CAP PO PRN (00:23)
[2017-07-14] MEDS: TRAMADOL HCL 50 MG TAB PO PRN ×2 (00:23→09:29)
[2017-07-14] MEDS ORDERED: KETOROLAC TROMETHAMINE 30 MG/ML VIAL IV ONE (01:15)
[2017-07-14] MEDS: SODIUM CHLORIDE 0.9% 1000ML 1,000 ML IV SCH ×3 (03:02→19:10)
[2017-07-14] MEDS ORDERED: MORPHINE SULFATE INJ 4 MG/ML INJ IV PRN ×2 (05:45)
[2017-07-14] MEDS: BUDESONIDE 0.5MG/2 ML NEB INH SCH ×2 (07:00→19:00)
[2017-07-14] MEDS: PANTOPRAZOLE SOD 40 MG TABEC PO SCH (09:29)
[2017-07-14] MEDS: SUCRALFATE 1 GM TAB PO SCH ×4 (09:29→20:26)
[2017-07-14] MEDS ORDERED: MORPHINE SULFATE 2 MG/ML SYR ONE (19:49)
[2017-07-14] MEDS ORDERED: PREDNISONE 20 MG TAB PO SCH (20:00)
[2017-07-14] MEDS: AMLODIPINE BESYLATE 5 MG TAB PO SCH (20:26)
[2017-07-14] MEDS: ZOLPIDEM TARTRATE 10 MG TAB PO PRN (20:26)
[2017-07-14] MEDS: ATENOLOL 50 MG TAB PO SCH (20:27)
[2017-07-15] VITALS (7 sets, daily range): BP systolic 114–141; BP diastolic 68–88
[2017-07-15] MEDS: SODIUM CHLORIDE 0.9% 1000ML 1,000 ML IV SCH ×3 (02:48→20:56)
[2017-07-15] MEDS ORDERED: PREDNISONE 20 MG TAB PO SCH (06:00)
[2017-07-15 06:29] LABS: BASOPHILS % 0.6 % (0.0-1.0); HEMOGLOBIN 9.9 g/dL (12.0-16.0); LYMPHOCYTES # (AUTO) 0.9 (1.0-3.2); MEAN CORPUSCULAR HEMOGLOBIN 30.4 pg (28-32); MEAN CORPUSCULAR HGB CONC 34.1 g/dL (31-35); MONOCYTES # (AUTO) 0.2 (0.2-0.8); MONOCYTES % 3.4 % (4.4-11.3); NEUTROPHILS # (AUTO) 3.3 (2.1-6.9); NEUTROPHILS % 66.9 % (38.7-80.0); PLATELET COUNT 267 x10e3/uL (140-360); RED BLOOD COUNT 3.26 x10e6/uL (3.6-5.1); RED CELL DISTRIBUTION WIDTH 14.8 % (11.7-14.4)
[2017-07-15] MEDS ORDERED: DIPHENHYDRAMINE HCL 25 MG CAP PO SCH (07:00)
[2017-07-15] MEDS ORDERED: PREDNISONE 20 MG TAB PO ONE (07:00)
[2017-07-15] MEDS: BUDESONIDE 0.5MG/2 ML NEB INH SCH ×2 (07:00→18:57)
[2017-07-15] MEDS ORDERED: FAMOTIDINE 20 MG TAB PO SCH (07:00)
[2017-07-15 07:09] LABS: ALANINE AMINOTRANSFERASE 115 IU/L (0-55); ALBUMIN 2.2 g/dL (3.5-5.0); ALBUMIN/GLOBULIN RATIO 0.8 (0.8-2.0); ALKALINE PHOSPHATASE 58 IU/L (40-150); ANION GAP 9.9 mmol/L (8-16); BLOOD UREA NITROGEN 5 mg/dL (7-26); BUN/CREATININE RATIO 8 (6-25); CALCIUM 7.5 mg/dL (8.4-10.2); CARBON DIOXIDE 22 mmol/L (22-29); CHLORIDE 99 mmol/L (98-107); CREATININE, SERUM 0.63 mg/dL (0.57-1.11); EST GLOMERULAR FILTRATION RATE > 60 ML/MIN (60-); GLUCOSE 156 mg/dL (74-118); SODIUM 128 mmol/L (136-145)
[2017-07-15 07:11] LABS: POTASSIUM 2.9 mmol/L (3.5-5.1)
[2017-07-15] MEDS ORDERED: POTASSIUM CHLORIDE 20MEQ/15ML UDC PO ONE (08:00)
[2017-07-15] MEDS: PANTOPRAZOLE SOD 40 MG TABEC PO SCH (09:42)
[2017-07-15] MEDS: SUCRALFATE 1 GM/10 ML SUSP PO SCH ×4 (09:42→20:56)
[2017-07-15] MEDS ORDERED: IOPAMIDOL 370 MG/ML 200 ML INFUS..BTL INJ ONE (09:59)
[2017-07-15] MEDS ORDERED: SODIUM CHLORIDE 0.9% 50ML 50 ML ONE (09:59)
--- NOTE | 2017-07-15 10:30 | Diagnostic Imaging Report ---
PROCEDURE: CT ABDOMEN WITH AND WITHOUT CONTRAST TECHNIQUE: The abdomen was scanned utilizing a multidetector helical scanner from the diaphragm to the iliac crest before and after the IV administration of 100 cc of Isovue 370. The images were obtained in the arterial, portal venous, and delayed phases. Coronal and sagittal multiplanar reformations were obtained. COMPARISON: CT abdomen and pelvis without contrast 07/07/2017. INDICATIONS: PORTAL VEIN THROMBOSIS, FEVER FINDINGS: LOWER THORAX: Small bilateral pleural effusions. HEPATOBILIARY: No focal hepatic lesions. No biliary ductal dilatation. Normal gallbladder. SPLEEN: No splenomegaly. PANCREAS: No focal masses or ductal dilatation. ADRENALS: No adrenal nodules. KIDNEYS: No hydronephrosis, stones, or solid mass lesions. PERITONEUM / RETROPERITONEUM: No free air or fluid. LYMPH NODES: No lymphadenopathy. VESSELS: Patent portal vein. Scattered atherosclerotic calcifications. GI TRACT: Visualized portions of the bowel demonstrate no distention or wall thickening. BONES AND SOFT TISSUES: Degenerative changes of the lumbar spine. IMPRESSION: No acute abnormality of the abdomen. Patent portal vein. Dictated by: Juan Martin M.D. on 07/15/2017 at 10:31 Electronically approved by: Juan Martin M.D. on 07/15/2017 at 10:31
--- NOTE | 2017-07-15 10:49 | Consultation ---
DATE OF CONSULTATION: July 13, 2017 CARDIOLOGY CONSULTATION REASON FOR CONSULTATION: Rule out DVT and rule out endocarditis. REQUESTING PHYSICIAN: Dr. Wild. HPI: This is a 77-year-old female who presented with fever and abdominal pain. She is undergoing workup for fever of unknown origin with infectious disease on the case. She is getting workup today for the liver. Cardiology was consulted on 07/13/2017 to rule out DVT and endocarditis, but we did not receive any call. The patient is being seen today because she showed up on the list. She denies any chest pain, any palpitations, any dizziness, any diaphoresis or headache. PAST MEDICAL HISTORY: Hypertension, anemia, V-tach, abdominal pain and fever. PAST SURGICAL HISTORY: Cardiac catheterization with no intervention and cataract surgery on the eyes. FAMILY HISTORY: Noncontributory. SOCIAL HISTORY: No smoking. No drinking. ALLERGIES: SHE IS ALLERGIC TO IODINE AND LEVAQUIN. REVIEW OF SYSTEMS: Negative except those mentioned above. PHYSICAL EXAMINATION VITAL SIGNS: Temperature 97, heart rate 70, blood pressure 136/82, respirations 18, oxygen saturation 100% on room air. GENERAL: She is alert, awake, and oriented times 3 but very lethargic. HEENT: Mucous membranes are moist. NECK: Supple. LUNGS: Bilaterally clear to auscultation. CARDIOVASCULAR: S1 and S2 present. ABDOMEN: Soft. NEURO: Intact. EXTREMITIES: No edema. LABS: Sodium 128, potassium 2.9, chloride 99, CO2 22, BUN 5, creatinine 0.63, glucose 156. White blood cells 4.95, hemoglobin 9.9, hematocrit 26.7. PT 12.2, PTT 21.5, INR 0.98. IMPRESSION 1. Abdominal pain. 2. Hypokalemia. 3. Anemia. 4. Fever. 5. Generalized weakness. ASSESSMENT AND PLAN: Potassium has been replaced. We will go ahead and get a 12-lead EKG. She is pending official echo and bilateral lower extremity Doppler report. Will consider possible MARISA if there is anything abnormal with the echo. Further cardiac workup pending clinical course. Thank you for this consultation. Dictated by Kimberlee Mccormack NP Job#: [id number]
[2017-07-15] MEDS: ATENOLOL 50 MG TAB PO SCH (20:56)
[2017-07-15] MEDS: AMLODIPINE BESYLATE 5 MG TAB PO SCH (20:56)
[2017-07-15] MEDS: TRAMADOL HCL 50 MG TAB PO PRN (22:07)
[2017-07-15] MEDS: ZOLPIDEM TARTRATE 10 MG TAB PO PRN (22:14)
[2017-07-16 00:09] VITALS: BP 117/59
[2017-07-16] MEDS: SODIUM CHLORIDE 0.9% 1000ML 1,000 ML IV SCH ×3 (04:25→20:00)
[2017-07-16 05:55] VITALS: BP 126/76
[2017-07-16] MEDS: BUDESONIDE 0.5MG/2 ML NEB INH SCH ×2 (07:00→19:00)
[2017-07-16 08:00] VITALS: BP 145/83
[2017-07-16] MEDS: SUCRALFATE 1 GM/10 ML SUSP PO SCH ×4 (08:03→20:40)
[2017-07-16] MEDS: PANTOPRAZOLE SOD 40 MG TABEC PO SCH (08:03)
[2017-07-16] MEDS: MORPHINE SULFATE 2 MG/ML SYR IV PRN ×2 (10:06→20:48)
[2017-07-16] MEDS: ONDANSETRON HCL INJ 2 MG/ML VIAL IV PRN ×2 (10:06→20:47)
[2017-07-16 10:36] LABS: BASOPHILS % 0.3 % (0.0-1.0); EOSINOPHILS # (AUTO) 0.1 (0.0-0.4); EOSINOPHILS % 0.6 % (0.0-6.0); HEMATOCRIT 29.8 % (34.2-44.1); HEMOGLOBIN 10.2 g/dL (12.0-16.0); LYMPHOCYTES # (AUTO) 2.7 (1.0-3.2); LYMPHOCYTES % 24.3 % (18.0-39.1); MEAN CORPUSCULAR HEMOGLOBIN 30.4 pg (28-32); MEAN CORPUSCULAR HGB CONC 34.2 g/dL (31-35); MONOCYTES # (AUTO) 0.6 (0.2-0.8); MONOCYTES % 5.5 % (4.4-11.3); NEUTROPHILS # (AUTO) 6.9 (2.1-6.9); NEUTROPHILS % 63.6 % (38.7-80.0); PLATELET COUNT 365 x10e3/uL (140-360); RED BLOOD COUNT 3.35 x10e6/uL (3.6-5.1); RED CELL DISTRIBUTION WIDTH 15.4 % (11.7-14.4)
[2017-07-16 10:56] LABS: ANION GAP 11.6 mmol/L (8-16); BLOOD UREA NITROGEN 7 mg/dL (7-26); BUN/CREATININE RATIO 11 (6-25); CARBON DIOXIDE 24 mmol/L (22-29); CHLORIDE 104 mmol/L (98-107); CREATININE, SERUM 0.65 mg/dL (0.57-1.11); EST GLOMERULAR FILTRATION RATE > 60 ML/MIN (60-); GLUCOSE 118 mg/dL (74-118); SODIUM 137 mmol/L (136-145)
[2017-07-16 11:01] LABS: POTASSIUM 2.6 mmol/L (3.5-5.1)
[2017-07-16] MEDS ORDERED: POTASSIUM CHLORIDE 20MEQ/15ML UDC PO ONE ×2 (11:30→17:00)
[2017-07-16 11:47] LABS: BAND NEUTROPHILS % (MANUAL) 2 %; LYMPHOCYTES % (MANUAL) 23 % (19-48); MONOCYTES % (MANUAL) 6 % (3.4-9.0); NEUTROPHILS % (MANUAL) 69 % (40-74); PLATELET ESTIMATE ADEQUATE; PLATELET MORPHOLOGY COMMENT NORMAL; RBC MORPHOLOGY COMMENT NORMAL
[2017-07-16 12:00] VITALS: BP 126/79
[2017-07-16 16:00] VITALS: BP 137/87
[2017-07-16 19:45] VITALS: BP 138/71
[2017-07-16] MEDS: AMLODIPINE BESYLATE 5 MG TAB PO SCH (20:40)
[2017-07-16] MEDS: ATENOLOL 50 MG TAB PO SCH (20:40)
[2017-07-16] MEDS: ZOLPIDEM TARTRATE 10 MG TAB PO PRN (22:45)
[2017-07-17 00:20] VITALS: BP 132/62
[2017-07-17] MEDS: SODIUM CHLORIDE 0.9% 1000ML 1,000 ML IV SCH (03:50)
[2017-07-17 05:00] VITALS: BP 129/69
[2017-07-17 06:35] LABS: BASOPHILS # (AUTO) 0.1 (0.0-0.1); BASOPHILS % 0.5 % (0.0-1.0); EOSINOPHILS # (AUTO) 0.2 (0.0-0.4); EOSINOPHILS % 2.3 % (0.0-6.0); HEMATOCRIT 31.3 % (34.2-44.1); HEMOGLOBIN 10.6 g/dL (12.0-16.0); LYMPHOCYTES # (AUTO) 3.1 (1.0-3.2); LYMPHOCYTES % 34.2 % (18.0-39.1); MEAN CORPUSCULAR HEMOGLOBIN 30.1 pg (28-32); MEAN CORPUSCULAR HGB CONC 33.9 g/dL (31-35); MEAN CORPUSCULAR VOLUME 88.9 fL (81-99); MONOCYTES # (AUTO) 0.6 (0.2-0.8); MONOCYTES % 6.8 % (4.4-11.3); NEUTROPHILS # (AUTO) 4.5 (2.1-6.9); NEUTROPHILS % 48.8 % (38.7-80.0); PLATELET COUNT 419 x10e3/uL (140-360); RED BLOOD COUNT 3.52 x10e6/uL (3.6-5.1); RED CELL DISTRIBUTION WIDTH 15.8 % (11.7-14.4)
[2017-07-17] MEDS: BUDESONIDE 0.5MG/2 ML NEB INH SCH (07:00)
[2017-07-17 07:12] LABS: ANION GAP 11.9 mmol/L (8-16); BLOOD UREA NITROGEN 7 mg/dL (7-26); BUN/CREATININE RATIO 10 (6-25); CALCIUM 8.4 mg/dL (8.4-10.2); CARBON DIOXIDE 27 mmol/L (22-29); CHLORIDE 103 mmol/L (98-107); CREATININE, SERUM 0.68 mg/dL (0.57-1.11); EST GLOMERULAR FILTRATION RATE > 60 ML/MIN (60-); GLUCOSE 86 mg/dL (74-118); POTASSIUM 3.9 mmol/L (3.5-5.1); SODIUM 138 mmol/L (136-145)
[2017-07-17] MEDS ORDERED: KETOROLAC TROMETHAMINE 30 MG/ML VIAL IV PRN (07:45)
[2017-07-17 08:00] VITALS: BP 125/76
[2017-07-17] MEDS ORDERED: CARAFATE1 GM/10 ML PO (08:28)
[2017-07-17] MEDS ORDERED: PANTOPRAZOLE SO40 MG PO (08:28)
[2017-07-17 14:09] LABS: BAND NEUTROPHILS % (MANUAL) 5 %; EOSINOPHILS % (MANUAL) 4 % (0-7); LYMPHOCYTES % (MANUAL) 50 % (19-48); MONOCYTES % (MANUAL) 6 % (3.4-9.0); NEUTROPHILS % (MANUAL) 35 % (40-74); PLATELET ESTIMATE ADEQUATE; PLATELET MORPHOLOGY COMMENT NORMAL; RBC MORPHOLOGY COMMENT NORMAL
--- NOTE | 2017-07-26 11:06 | Consultation ---
DATE OF CONSULTATION: CARDIOLOGY CONSULTATION CHIEF COMPLAINT: Patient is a 77 year old with fevers. HISTORY OF PRESENT ILLNESS: Patient is a 77 year old female who has been having fevers at home for several weeks. Patient does have some occasional sharp chest pain. No shortness of breath. No syncope. No dizziness. No nausea. No vomiting. CT scan of the abdomen and pelvis was unremarkable. The patient's blood cultures have been negative so far. Cardiology consultation has been obtained to exclude endocarditis. PAST MEDICAL HISTORY: Significant for: 1. Previous ablation for supraventricular tachycardia. 2. Hypertension. MEDICATIONS: At home include amlodipine, atenolol and prednisone. SOCIAL HISTORY: The patient does not drink and does not smoke. FAMILY HISTORY: There is no family history of coronary artery disease. PHYSICAL EXAMINATION GENERAL: The patient is a well-developed, well-nourished female. VITAL SIGNS: Include a temperature of 97.6, pulse 70, blood pressure 108/69. HEENT: The patient's cranium was normocephalic and atraumatic. Extraocular muscles were intact. Sclerae is anicteric. Pupils equal, round and reactive to light. There is no pallor or cyanosis of the oral mucosa. There is no erythema or edema of the throat. NECK: Supple. No jugular venous distention. No carotid bruits. CHEST: Clear to auscultation and percussion. CARDIAC: Demonstrated normal S1 and S2 with a short 2/6 systolic murmur. ABDOMEN: Demonstrated good bowel sounds. No tenderness. No masses. EXTREMITIES: There is no clubbing, cyanosis and no edema. NEUROLOGIC: The patient was alert and oriented times 3. Cranial nerves II-XII are intact. Motor strength was +5/+5 in all limbs. The patient's EKG demonstrated normal sinus rhythm with nonspecific S/T and T-wave changes. IMPRESSION: The patient is a 77 year old with fever of unknown origin. So far, the blood cultures are negative. The patient's presentation is very atypical for endocarditis. RECOMMENDATIONS 1. I feel that the blood cultures should be held to see if there is any growth of Hacek or fastidious organisms. 2. An echocardiogram with Doppler has been ordered to evaluate the possible vegetations. Job#: [id number] RI cc:NUSRAT ESPAÑA MD
--- NOTE | 2017-09-23 09:23 | Discharge Summary ---
DISCHARGE DIAGNOSES 1. Fever unknown origin. 2. Hypertension. HISTORY OF PRESENT ILLNESS AND HOSPITAL COURSE: Patient is a lady who presented with fever, malaise with no identifiable source who was receiving daily Rocephin shots to no avail. She was then admitted, was seen by multiple subspecialists including infectious disease, pulmonary where workup did not show any evidence of bacterial infections. She even had an EGD performed by Dr. Perera. So best answer after all the serology studies were negative, patient may be experiencing some sort of viral cause for her fever of unknown origin since at the time of discharge her fever had actually resolved without an identifiable source but she was feeling good time of discharge. She wanted to go home so she was discharged home in good condition with followup in 1 to 2 weeks with me. Please see hospital chart for full details. NUSRAT ESPAÑA MD Job#: [id number] DG
== END 2017-07-17 09:13 | disposition home or self-care (01) | DRG 327 ==
LOC: ER 16:56 → ERHOLD 21:46 → MED/SURG2 23:10
PROVIDERS: ADMIT Internal Medicine; ATTEND Internal Medicine
PROC: 0DB68ZX Excision of Stomach, Via Natural or Artificial Opening Endoscopic, Diagnostic (ICD-10-PCS; 2017-07-13)
PROC: 0D738ZZ Dilation of Lower Esophagus, Via Natural or Artificial Opening Endoscopic (ICD-10-PCS; 2017-07-13)
PROC: 0DB78ZX Excision of Stomach, Pylorus, Via Natural or Artificial Opening Endoscopic, Diagnostic (ICD-10-PCS; principal; 2017-07-13 10:00)
PROC: 0DQ98ZZ Repair Duodenum, Via Natural or Artificial Opening Endoscopic (ICD-10-PCS; 2017-07-13 10:00)
PROC: 0DB58ZX Excision of Esophagus, Via Natural or Artificial Opening Endoscopic, Diagnostic (ICD-10-PCS; 2017-07-13 10:00)
DX: K25.0 Acute gastric ulcer with hemorrhage (principal); E87.1 Hypo-osmolality and hyponatremia; K74.60 Unspecified cirrhosis of liver; D64.9 Anemia, unspecified; R19.7 Diarrhea, unspecified; I10 Essential (primary) hypertension; E87.6 Hypokalemia; K44.9 Diaphragmatic hernia without obstruction or gangrene; K29.70 Gastritis, unspecified, without bleeding; K20.9 Esophagitis, unspecified
CPT/HCPCS: 36415; 43239; 43255; 43450; 70551; 71046; 74170; 74176; 80048; 80053; 80076; 81001; 82550; 82553; 83605; 83735; 84132; 84436; 84439; 84443; 84479; 84484; 85025; 85610; 85651; 85730; 86039; 86140; 86200; 86255; 86376; 86431; 86644; 86645; 86663; 86664; 86665; 86777; 86778; 87040; 87045; 87177; 87328; 87385; 87390; 88305; 88312; 93005; 93306; 93970; 94640; 96361; 99284; G0433; G0435; J0694; J1885; J2001; J2270; J2405; J3480; J7030; Q9967

== ENCOUNTER → 2018-01-12 | Outpatient (CLI) | payer BC, MEDICARE ==
[~2018-01-12] MED LIST changes: +CARAFATE1 GM/10 ML PO; +PANTOPRAZOLE SO40 MG PO
--- NOTE | 2018-01-12 09:27 | Diagnostic Imaging Report ---
PROCEDURE:L-SPINE COMPLETE COMPARISON:CT Abdomen/Pelvis 07/07/17. INDICATIONS:SCIATICA FINDINGS: Minimal retrolisthesis of L1 on L2. The vertebral bodies are otherwise well-aligned without evidence of spondylolisthesis. No evidence of fracture. Mild degenerative disc changes, most pronounced at L5-S1. Moderate facet degenerative changes at L5-S1. Mild bilateral neural foraminal stenosis at L5-S1. CONCLUSION: No acute osseous abnormality. Mild degenerative disc changes and moderate facet degenerative changes most pronounced in the lower lumbar spine. Mild bilateral neural foraminal stenosis at L5-S1. Dictated by: SHANE SAEED M.D. on 01/12/2018 at 9:35 Electronically approved by: SHANE SAEED M.D. on 01/12/2018 at 9:35
== END ==
LOC: RAD 08:27
PROVIDERS: ATTEND Internal Medicine
DX: M54.40 Lumbago with sciatica, unspecified side (principal)
CPT/HCPCS: 72110

== ENCOUNTER → 2020-12-24 | Outpatient (CLI) | payer MEDICARE | LOC: MRI 13:31 | PROVIDERS: ATTEND Internal Medicine | DX: M54.2 Cervicalgia (principal) | CPT/HCPCS: 72141 ==

== ENCOUNTER 2021-07-28 00:10 | Observation (INO) | payer MEDICARE ==
[2021-07-28] VITALS (7 sets, daily range): BP systolic 113–140; BP diastolic 66–82
[~2021-07-28] VITALS: Ht 170.2 cm; Wt 72.6 kg
[2021-07-28] MEDS ORDERED: ONDANSETRON HCL INJ 2MG/ML 2ML 2 MG/ML VIAL IV STA (01:00)
[2021-07-28] MEDS ORDERED: DIATRIZOATE MEGL/DIATRIZOA SOD 30 ML BTL PO ONE (01:03)
[2021-07-28 01:07] LABS: BASOPHILS # (AUTO) 0.1 (0.0-0.1); BASOPHILS % 0.4 % (0.0-1.0); EOSINOPHILS % 0.2 % (0.0-6.0); HEMATOCRIT 40.3 % (34.2-44.1); HEMOGLOBIN 13.8 g/dL (12.0-16.0); LYMPHOCYTES # (AUTO) 4.2 (1.0-3.2); LYMPHOCYTES % 25.8 % (18.0-39.1); MEAN CORPUSCULAR HGB CONC 34.2 g/dL (31-35); MEAN CORPUSCULAR VOLUME 93.5 fL (81-99); NEUTROPHILS # (AUTO) 10.8 (2.1-6.9); NEUTROPHILS % 66.6 % (38.7-80.0); PLATELET COUNT 433 x10e3/uL (140-360); RED BLOOD COUNT 4.31 x10e6/uL (3.6-5.1); RED CELL DISTRIBUTION WIDTH 12.7 % (11.7-14.4)
[2021-07-28] MEDS: FENTANYL CITRATE/PF 100MCG/2 ML INJ IV PRN ×2 (01:13→03:50)
[2021-07-28] MEDS ORDERED: ONDANSETRON HCL INJ 2MG/ML 2ML 2 MG/ML VIAL ONE (01:15)
[2021-07-28 01:26] LABS: ALBUMIN 3.9 g/dL (3.5-5.0); ALBUMIN/GLOBULIN RATIO 1.1 (0.8-2.0); ANION GAP 16.1 mmol/L (8-16); CALCIUM 9.3 mg/dL (8.4-10.2); CREATININE, SERUM 1.1 mg/dL (0.57-1.11); POTASSIUM 3.1 mmol/L (3.5-5.1)
[2021-07-28 02:47] LABS: CLARITY,URINE CLEAR (CLEAR); COLOR,URINE YELLOW (YELLOW); KETONES,URINE 1+ (NEGATIVE); LEUKOCYTE ESTERASE ,URINE NEGATIVE (NEGATIVE); NITRITE,URINE NEGATIVE (NEGATIVE); PROTEIN,URINE DIPSTICK NEGATIVE (NEGATIVE); URINE UROBILINOGEN 0.2 mg/dL (0.2 - 1)
[2021-07-28] MEDS ORDERED: SODIUM CHLORIDE 0.9% 1000ML 1,000 ML ONE (02:59)
[2021-07-28] MEDS ORDERED: SODIUM CHLORIDE 0.9% 1000ML 1,000 ML IV ONE (03:00)
[2021-07-28 03:09] LABS: BACTERIA,URINE RARE /HPF; EPITHELIAL CELLS,URINE FEW /LPF; RBC,URINE 0-5 /HPF (0-5); WBC,URINE (MAN) 0-5 /HPF (0-5)
[2021-07-28] MEDS ORDERED: DICYCLOMINE HCL 20 MG/2 ML VIAL IM ONE ×2 (03:15→03:20)
[2021-07-28] MEDS ORDERED: FENTANYL CITRATE/PF 100MCG/2 ML INJ IV ONE ×2 (03:30→03:45)
[2021-07-28] MEDS ORDERED: ONDANSETRON HCL INJ 2MG/ML 2ML 2 MG/ML VIAL IV PRN (05:00)
[2021-07-28] MEDS: SODIUM CHLORIDE 0.9% 1000ML 1,000 ML IV SCH ×3 (05:27→19:45)
[2021-07-28] MEDS: SUCRALFATE 1 GM/10 ML SUSP PO SCH ×4 (08:40→21:08)
[2021-07-28] MEDS ORDERED: KETOROLAC TROMETHAMINE 30 MG/ML VIAL IV STA (10:07)
[2021-07-28] MEDS ORDERED: ULTRAM50 MG PO (10:07)
[2021-07-28] MEDS ORDERED: ZETIA10 MG PO (10:07)
[2021-07-28] MEDS ORDERED: CITRATE OF MAGNESIA 300ML BOTTLE PO ONE (20:30)
[2021-07-28] MEDS ORDERED: PEG (High)/E-LYTE SOLN 4,000 ML BTL PO ONE (20:30)
[2021-07-28] MEDS ORDERED: BISACODYL 5 MG TAB EC PO ONE (20:30)
[2021-07-28] MEDS: AMLODIPINE BESYLATE 5 MG TAB PO SCH (21:00)
[2021-07-28] MEDS: ATENOLOL 50 MG TAB PO SCH (21:09)
[2021-07-29] MEDS: SODIUM CHLORIDE 0.9% 1000ML 1,000 ML IV SCH ×3 (03:45→19:45)
[2021-07-29 04:30] VITALS: BP 136/69
[2021-07-29 05:01] LABS: BASOPHILS # (AUTO) 0.1 (0.0-0.1); BASOPHILS % 0.4 % (0.0-1.0); EOSINOPHILS # (AUTO) 0.1 (0.0-0.4); HEMATOCRIT 36.5 % (34.2-44.1); HEMOGLOBIN 12.1 g/dL (12.0-16.0); LYMPHOCYTES % 25.8 % (18.0-39.1); MEAN CORPUSCULAR HEMOGLOBIN 32.2 pg (28-32); MEAN CORPUSCULAR HGB CONC 33.2 g/dL (31-35); MONOCYTES # (AUTO) 0.9 (0.2-0.8); MONOCYTES % 7.5 % (4.4-11.3); NEUTROPHILS # (AUTO) 7.4 (2.1-6.9); PLATELET COUNT 348 x10e3/uL (140-360); RED BLOOD COUNT 3.76 x10e6/uL (3.6-5.1); RED CELL DISTRIBUTION WIDTH 13.2 % (11.7-14.4)
[2021-07-29 05:09] LABS: MEAN CORPUSCULAR VOLUME 97.1 fL (81-99)
[2021-07-29 05:26] LABS: ANION GAP 16.3 mmol/L (8-16); BLOOD UREA NITROGEN < 5 mg/dL (7-26); CALCIUM 8.2 mg/dL (8.4-10.2); CARBON DIOXIDE 16 mmol/L (22-29); CHLORIDE 104 mmol/L (98-107); CREATININE, SERUM 0.91 mg/dL (0.57-1.11); EST GLOMERULAR FILTRATION RATE 60 ML/MIN (60-); GLUCOSE 97 mg/dL (74-118); POTASSIUM 3.3 mmol/L (3.5-5.1); SODIUM 133 mmol/L (136-145)
[2021-07-29 05:27] LABS: BUN/CREATININE RATIO 5 (6-25)
[2021-07-29 05:50] LABS: ALANINE AMINOTRANSFERASE 15 IU/L (0-55); ALBUMIN 3.5 g/dL (3.5-5.0); ALBUMIN/GLOBULIN RATIO 1.2 (0.8-2.0); ALKALINE PHOSPHATASE 72 IU/L (40-150); MAGNESIUM 2.3 MG/DL (1.3-2.1)
[2021-07-29] MEDS: SUCRALFATE 1 GM/10 ML SUSP PO SCH ×4 (07:30→21:00)
[2021-07-29 08:32] VITALS: BP 150/76
[2021-07-29] MEDS ORDERED: FENTANYL CITRATE/PF 100MCG/2 ML INJ ONE (12:38)
[2021-07-29] MEDS ORDERED: MIDAZOLAM HCL 2 MG/2 ML VIAL ONE (12:38)
[2021-07-29] MEDS ORDERED: PROPOFOL IV EMULSION 10 MG/ML 20 ML VIAL ONE (19:37)
[2021-07-29] MEDS ORDERED: POVIDONE IODINE 0.05% 0.05 % ML PO ONE (19:37)
[2021-07-29 20:26] VITALS: BP 110/69
[2021-07-29] MEDS: ATENOLOL 50 MG TAB PO SCH (21:00)
[2021-07-29] MEDS: AMLODIPINE BESYLATE 5 MG TAB PO SCH (21:00)
[2021-07-29 23:25] VITALS: BP 110/69
[2021-07-30 00:33] VITALS: BP 107/67
[2021-07-30] MEDS: SODIUM CHLORIDE 0.9% 1000ML 1,000 ML IV SCH (03:45)
[2021-07-30 05:46] VITALS: BP 122/71
[2021-07-30] MEDS: SUCRALFATE 1 GM/10 ML SUSP PO SCH (08:41)
[2021-07-30 08:48] VITALS: BP 122/71
[2021-07-30] MEDS ORDERED: PANTOPRAZOLE SO40 MG PO (10:03)
== END 2021-07-30 11:52 | disposition home or self-care (01) ==
LOC: ER 00:40 → ERHOLD 03:41 → MED/SURG2 08:41
PROVIDERS: ADMIT Internal Medicine; ATTEND Internal Medicine
DX: K22.2 Esophageal obstruction (principal); K29.70 Gastritis, unspecified, without bleeding; K46.9 Unspecified abdominal hernia without obstruction or gangrene; K57.90 Diverticulosis of intestine, part unspecified, without perforation or abscess without bleeding; I10 Essential (primary) hypertension; Z20.822 Contact with and (suspected) exposure to COVID-19; K59.00 Constipation, unspecified; N39.0 Urinary tract infection, site not specified; E87.1 Hypo-osmolality and hyponatremia; K57.30 Diverticulosis of large intestine without perforation or abscess without bleeding; K64.8 Other hemorrhoids
CPT/HCPCS: 36415 ×2; 43239; 43249; 45378; 51700; 74022; 74176; 80053 ×2; 81001; 83735; 84484; 85025 ×2; 88305; 88312; 92526; 92610; 93005 ×2; 94799; 99284; C9113 ×2; G0378 ×3; J0500; J1885; J2250; J2405; J2704; J3010 ×2; J7030 ×2; U0002; 43233

== ENCOUNTER 2023-11-07 15:04 | Emergency (ER) | payer MEDICARE ==
[~2023-11-07] VITALS: Ht 170.2 cm; Wt 72.6 kg
[~2023-11-07 15:04] MED LIST changes: +ULTRAM50 MG PO; +ZETIA10 MG PO
[2023-11-07 16:17] LABS: BASOPHILS # (AUTO) 0.1 (0.0-0.1); BASOPHILS % 0.6 % (0.0-1.0); EOSINOPHILS # (AUTO) 0.1 (0.0-0.4); HEMATOCRIT 43.2 % (34.2-44.1); HEMOGLOBIN 14.2 g/dL (12.0-16.0); LYMPHOCYTES # (AUTO) 3.2 (1.0-3.2); LYMPHOCYTES % 33.4 % (18.0-39.1); MEAN CORPUSCULAR HEMOGLOBIN 31.1 pg (28-32); MEAN CORPUSCULAR HGB CONC 32.9 g/dL (31-35); MEAN CORPUSCULAR VOLUME 94.5 fL (81-99); MONOCYTES # (AUTO) 0.6 (0.2-0.8); NEUTROPHILS # (AUTO) 5.5 (2.1-6.9); NEUTROPHILS % 58.5 % (38.7-80.0); PLATELET COUNT 367 x10e3/uL (140-360); RED BLOOD COUNT 4.57 x10e6/uL (3.6-5.1); RED CELL DISTRIBUTION WIDTH 13.2 % (11.7-14.4); WHITE BLOOD COUNT 9.46 x10e3/uL (4.8-10.8)
[2023-11-07 16:27] LABS: INR 0.85; PARTIAL THROMBOPLASTIN TIME 23.7 seconds (23.8-35.5); PROTHROMBIN TIME 12.2 seconds (11.9-14.5)
[2023-11-07 16:29] LABS: ALBUMIN 4.4 g/dL (3.5-5.0); ALBUMIN/GLOBULIN RATIO 1.2 (0.8-2.0); BILIRUBIN,TOTAL 0.5 mg/dL (0.2-1.2); CALCIUM 9.9 mg/dL (8.4-10.2); CREATININE, SERUM 1.23 mg/dL (0.57-1.11); TOTAL PROTEIN 8.2 g/dL (6.5-8.1)
[2023-11-07] MEDS ORDERED: METOCLOPRAMIDE HCL 10 MG/2ML VIAL ONE (17:00)
[2023-11-07] MEDS: ONDANSETRON HCL INJ 2MG/ML 2ML 2 MG/ML VIAL IV STA (17:02)
[2023-11-07] MEDS: METOCLOPRAMIDE HCL 10 MG/2ML VIAL IV ONE (17:02)
[2023-11-07] MEDS ORDERED: LIDOCAINE HCL 1% 2 ML AMP ONE (18:54)
[2023-11-07] MEDS: CEFTRIAXONE 1 GM VIAL IM ONE (18:58)
[2023-11-07 19:01] VITALS: PULSE 71; RESP 18; TEMP 98.4; O2SAT 98
== END 2023-11-07 19:05 | disposition home or self-care (01) ==
LOC: ER 16:48
DX: K56.699 Other intestinal obstruction unspecified as to partial versus complete obstruction (principal); R07.89 Other chest pain; I10 Essential (primary) hypertension; E78.5 Hyperlipidemia, unspecified; N80.9 Endometriosis, unspecified; Z11.52 Encounter for screening for COVID-19
CPT/HCPCS: 36415; 71045; 80053; 85025; 85610; 85730; 99284; J0696; J2001; J2405; J2765; U0002

== ENCOUNTER 2024-12-14 22:07 | Emergency (ER) | payer MEDICARE ==
[~2024-12-14] VITALS: Ht 171.4 cm; Wt 68.0 kg
[2024-12-14 22:13] VITALS: TEMP 97.6
[2024-12-15] MEDS: ONDANSETRON HCL INJ 2MG/ML 2ML 2 MG/ML VIAL IV STA (00:08)
[2024-12-15] MEDS: Morphine 2mg Syringe 2 MG/ML SYR IV ONE (00:08)
[2024-12-15 00:15] VITALS: PULSE 89; RESP 19
[2024-12-15] MEDS ORDERED: HYDROCODON-ACE1 EA11 PO (00:58)
[2024-12-15] MEDS ORDERED: ONDANSETRON ODT4 MG SL (00:58)
[2024-12-15 01:08] VITALS: BP 160/74; PULSE 80; RESP 17; TEMP 97.9; O2SAT 100
== END 2024-12-15 01:28 | disposition home or self-care (01) ==
LOC: ER 22:35
DX: S00.93XA Contusion of unspecified part of head, initial encounter (principal); M25.512 Pain in left shoulder; M54.2 Cervicalgia; M54.9 Dorsalgia, unspecified; W01.0XXA Fall on same level from slipping, tripping and stumbling without subsequent striking against object, initial encounter; Y92.019 Unspecified place in single-family (private) house as the place of occurrence of the external cause; E78.5 Hyperlipidemia, unspecified; I10 Essential (primary) hypertension
CPT/HCPCS: 70450; 72126; 72128; 72131; 73030; 73060; 99284; J2270; J2405